=== PATIENT | female | born 1995 ===

== ENCOUNTER 2021-06-03 13:26 | Emergency (ER) | payer SELFPAY ==
[~2021-06-03] VITALS: Ht 152.4 cm; Wt 38.5 kg
[2021-06-03 13:27] VITALS: BP 115/67
[2021-06-03 15:08] LABS: RSV AMPLIFICATION NEGATIVE (NEGATIVE)
== END 2021-06-03 16:09 | disposition left against medical advice (07) ==
LOC: M ED 13:26
DX: Z53.21 Procedure and treatment not carried out due to patient leaving prior to being seen by health care provider (principal)